=== PATIENT | female | born 1965 | race American Indian/Alaskan Native ===

== ENCOUNTER 2016-09-12 02:48 | Emergency (ER) | payer OTHER ==
[2016-09-12 03:26] VITALS: BP 152/104
[2016-09-12] MEDS ORDERED: PEPCID PO ONE (04:37)
[2016-09-12] MEDS ORDERED: BENADRYL PO ONE (04:37)
[2016-09-12] MEDS ORDERED: DUONEB 0.5 MG-3 MG/3 ML SOLN IH ONE (04:37)
--- NOTE | 2016-09-12 06:45 | Emergency Department Report ---
HPI - General Chief Complaint: Allergic Reaction Time Seen by Provider: 09/12/16 04:36 - HPI HPI: 51-year-old female presents with complaint of 2-1/2 weeks of worsening cough. Patient states she took coricidin ( guaifnessin DM) OTC last night around 6 PM and proceeded to develop tingling in her lips mild swelling of her lips patient states she has had anaphylaxis and multiple allergic reactions with certain types of medicines in the past. States that over the last several hours the swelling has gotten better and has diminished since her initial reaction in hour subsequent to her use of medicine. Patient states she has been coughing and feels mildly short of breath denies any chest pain no palpitations no fever or chills states she has had productive cough over the last 2-3 weeks with greenish yellow sputum. ED Past Medical Hx - Past Medical History Previous Medical History?: Yes Hx Hypertension: Yes Hx Diabetes: Yes Hx Asthma: Yes Hx Dementia: Yes - Surgical History Past Surgical History?: Yes Additional Surgical History: TUBAL LIGATION. HYSTERECTOMY - Social History Smoking Status: Never Smoker Substance Use Type: None - Medications Home Medications: Home Medications Medication Instructions Recorded Confirmed Last Taken Type Albuterol Sulfate [Proventil HFA] 1 - 2 puff IH Q4H PRN #2 hfa.aer.ad 11/19/14 Unknown Rx Benzonatate [Tessalon Perles] 100 mg PO Q8HR PRN #20 capsule 11/19/14 Unknown Rx Ibuprofen [Motrin] 400 mg PO Q8H PRN #20 tablet 11/19/14 Unknown Rx Prednisone [Prednisone 5 mg (6-Day 5 mg PO .TAPER #1 tab.ds.pk 11/19/14 Unknown Rx Pack, 21 Tabs)] Cyclobenzaprine HCl [Flexeril 5 MG 5 mg PO TID #10 tab 05/06/15 Unknown Rx TAB] HYDROcodone/APAP 10-325 [[place] 1 each PO Q6HR PRN #20 tablet 05/06/15 Unknown Rx 10/325] Cyclobenzaprine HCl [Flexeril 5 MG 5 mg PO Q6HR #20 tablet 05/20/15 Unknown Rx TAB] Ibuprofen [Motrin 800 MG tab] 800 mg PO Q8HR PRN #30 tablet 05/20/15 Unknown Rx traMADol [Ultram 50 MG tab] 50 mg PO Q6HR PRN #20 tablet 05/20/15 Unknown Rx ALBUTEROL Inhaler [Proair] 1 puff IH Q4H PRN #1 inha 09/12/16 Unknown Rx Azithromycin [Zithromax Z-TORREY] 250 mg PO DAILY #6 tablet 09/12/16 Unknown Rx Diphenhydramine HCl [Benadryl 25 mg PO BID PRN #20 tablet 09/12/16 Unknown Rx Allergy TAB] EPINEPHrine (NF) [Epipen (Nf)] 0.3 mg IM ONCE PRN #1 syringekit 09/12/16 Unknown Rx Famotidine [Pepcid] 20 mg PO BID PRN #20 tablet 09/12/16 Unknown Rx predniSONE [Deltasone] 40 mg PO QDAY #10 tab 09/12/16 Unknown Rx ED Review of Systems ROS: Stated complaint: ASTHMA/ALLERGIC REACTION Other details as noted in HPI Constitutional: denies: chills, fever Eyes: denies: eye pain, eye discharge, vision change ENT: denies: ear pain, throat pain Respiratory: cough (2 weeks of cough now productive with greenish yellow sputum) . denies: shortness of breath, wheezing Cardiovascular: denies: chest pain, palpitations Endocrine: no symptoms reported Gastrointestinal: denies: abdominal pain, nausea, diarrhea Genitourinary: denies: urgency, dysuria, discharge Musculoskeletal: denies: back pain, joint swelling, arthralgia Skin: denies: rash, lesions Neurological: denies: headache, weakness, paresthesias Psychiatric: denies: anxiety, depression Hematological/Lymphatic: denies: easy bleeding, easy bruising Physical Exam - Physical Exam Vital Signs: Vital Signs 09/12/16 09/12/16 09/12/16 03:22 04:50 05:05 Temperature 98.3 F Pulse Rate 93 H Pulse Rate [ 80 86 Anterior] Respiratory 16 20 Rate [Anterior] Blood Pressure 152/104 O2 Sat by Pulse 97 Oximetry General: General: Small amount of lower lip swelling, no marked angioedema. No audible stridor or dyspnea .Well appearing, well nourished, in no distress. Oriented x 3 , normal mood and affect . Ambulating without difficulty. Head: Normocephalic, atraumatic, no visible or palpable masses, depressions, or scaring. Mouth: No visible tongue swelling. Mucous membranes moist, no mucosal lesions. Pharynx: Oropharynx patent, open Mucosa non-inflamed, no tonsillar hypertrophy or exudate Neck: Supple, without lesions, bruits, or adenopathy, thyroid non-enlarged and non-tender Heart: No cardiomegaly or thrills; regular rate and rhythm, no murmur or gallop Lungs: Mild bilateral wheezing Abdomen: Bowel sounds normal, no tenderness, organomegaly, masses, or hernia Back: Spine normal without deformity or tenderness, no CVA tenderness Musculoskeletal: Normal gait and station. No misalignment, asymmetry, crepitation, defects,tenderness, masses, effusions, decreased range of motion, instability, atrophy or abnormal strength or tone in the head, neck, spine, ribs , pelvis or extremities. Neurologic: CN 2-12 normal. ED Course Vital Signs 09/12/16 09/12/16 09/12/16 03:22 04:50 05:05 Temperature 98.3 F Pulse Rate 93 H Pulse Rate [ 80 86 Anterior] Respiratory 16 20 Rate [Anterior] Blood Pressure 152/104 O2 Sat by Pulse 97 Oximetry ED Medical Decision Making - Medical Decision Making A/P: Bronchitis, angioedema, allergic reaction 1-possible small area of infiltrates right lung, will treat empirically for community-acquired pneumonia. Z-Torrey. Prednisone 40 mg 5 day course, Pepcid, pro-air inhaler 2-I advised patient to return to the ED [facility] if she feels she is becoming progressively or acutely short of breath, any chest pain, any returned lip swelling or facial swelling 3-the patient has minimal lip swelling, as per patient has improved significantly since it initially started 4-I will provide patient with prescription for EpiPen in the event that she develops severe angioedema or anaphylaxis I give her strict precautions to return if she experiences facial swelling or any difficulty breathing. I advised patient to not take any ceyd-ywt-tjpuock medical products that contain guaifenesin or DM as these other components in medicine she took last night which may have induced angioedema. Critical care attestation.: If time is entered above; I have spent that time in minutes in the direct care of this critically ill patient, excluding procedure time. ED Disposition Clinical Impression: Angio-edema Qualifiers: Encounter type: initial encounter Qualified Code(s): T78.3XXA - Angioneurotic edema, initial encounter Disposition: DISCHARGED TO HOME OR SELFCARE Is pt being admited?: No Does the pt Need Aspirin: No Condition: Stable Instructions: Angioedema (ED), Acute Bronchitis (ED) Prescriptions: Diphenhydramine HCl [Benadryl Allergy TAB] 25 mg PO BID PRN #20 tablet PRN Reason: Allergic Reaction predniSONE [Deltasone] 40 mg PO QDAY #10 tab EPINEPHrine (NF) [Epipen (Nf)] 0.3 mg IM ONCE PRN #1 syringekit PRN Reason: Angioedema Famotidine [Pepcid] 20 mg PO BID PRN #20 tablet PRN Reason: Allergic Reaction ALBUTEROL Inhaler [Proair] 1 puff IH Q4H PRN #1 inha PRN Reason: Wheezing Azithromycin [Zithromax Z-TORREY] 250 mg PO DAILY #6 tablet Referrals: PRIMARY CARE, [Primary Care Provider] - 3-5 Days ONEIL BENTON MD [Staff Physician] - 3-5 Days Forms: Work/School Release Form(ED) Time of Disposition: 06:50
--- NOTE | 2016-09-12 07:44 | XRay Report ---
ROUTINE CHEST, TWO VIEWS: PA and lateral views demonstrate the heart and mediastinal contour to be of normal size and shape. The lungs are clear and fully expanded and the soft tissues and bony structures are normal. IMPRESSION: Normal study.
== END 2016-09-12 07:00 | disposition home or self-care (01) ==
LOC: ED 02:48
DX: T78.3XXA Angioneurotic edema, initial encounter (principal); Y92.9 Unspecified place or not applicable; I10 Essential (primary) hypertension; E11.9 Type 2 diabetes mellitus without complications; J45.909 Unspecified asthma, uncomplicated; F03.90 Unspecified dementia, unspecified severity, without behavioral disturbance, psychotic disturbance, mood disturbance, and anxiety; Z98.51 Tubal ligation status; Z90.710 Acquired absence of both cervix and uterus
CPT/HCPCS: 71020; 94640; 96372; 99283; J2930

== ENCOUNTER 2017-08-29 15:12 | Emergency (ER) | payer OTHER ==
[2017-08-29] MEDS ORDERED: TYLENOL PO ONE (15:39)
[2017-08-29] MEDS ORDERED: TYLENOL ONE (15:42)
[2017-08-29] MEDS ORDERED: DUONEB *Not for PRN Use IH ONE (16:03)
[2017-08-29 16:29] LABS: Basophils % (Auto) 0.9 % (0.0-1.8); Eosinophils % (Auto) 0.6 % (0.0-4.3); Hematocrit 37.9 % (30.3-42.9); Hemoglobin 12.8 gm/dl (10.1-14.3); Mean Corpuscular HGB Conc 34 % (30-34); Mean Corpuscular Hemoglobin 31 pg (28-32); Mean Corpuscular Volume 91 fl (79-97); Platelet Count 190 K/mm3 (140-440); Red Blood Count 4.15 M/mm3 (3.65-5.03); Red Cell Distribution Width 13.7 % (13.2-15.2); White Blood Count 4.8 K/mm3 (4.5-11.0)
--- NOTE | 2017-08-29 16:45 | Emergency Department Report ---
ED Asthma HPI - General Chief Complaint: Dyspnea/Respdistress Stated Complaint: ASTHMA ATTACK Time Seen by Provider: 08/29/17 15:55 Source: patient, old records reviewed Mode of arrival: Ambulatory Limitations: No Limitations - History of Present Illness MD Complaint: "asthma attack" -: Gradual Asthma History: childhood onset Severity: mild Associated Symptoms: dry cough, fever Treatments Prior to Arrival: inhaled bronchodilator - Related Data Previous Rx's Medication Instructions Recorded Last Taken Type Benzonatate [Tessalon Perles] 100 mg PO Q8HR PRN #20 capsule 08/29/17 Unknown Rx Cephalexin [Keflex] 500 mg PO Q12HR #20 cap 08/29/17 Unknown Rx predniSONE [Deltasone] 20 mg PO DAILY #5 tablet 08/29/17 Unknown Rx Allergies Allergy/AdvReac Type Severity Reaction Status Date / Time aspirin [From [facility]] Allergy Anaphylaxis Verified 05/06/15 08:17 citric acid Allergy Anaphylaxis Verified 05/06/15 08:17 [From [facility]] guaifenesin [From Mucinex] Allergy Shortness Verified 08/29/17 15:39 of Breath sodium bicarbonate Allergy Anaphylaxis Verified 05/06/15 08:17 [From [facility]] sodium fluoride Allergy Anaphylaxis Verified 05/06/15 08:17 [From Thera-Flur] acetaminophen [From Tylenol] AdvReac Unknown Verified 05/06/15 08:17 OTC Cold Meds Allergy Anaphylaxis Uncoded 09/10/16 06:39 ED Review of Systems ROS: Stated complaint: ASTHMA ATTACK Other details as noted in HPI Comment: All other systems reviewed and negative Constitutional: fever Respiratory: cough, shortness of breath Cardiovascular: denies: chest pain, palpitations, dyspnea on exertion ED Past Medical Hx - Past Medical History Previous Medical History?: Yes Hx Hypertension: Yes Hx Diabetes: Yes Hx Asthma: Yes Hx Dementia: Yes - Surgical History Past Surgical History?: Yes Additional Surgical History: TUBAL LIGATION. HYSTERECTOMY - Social History Smoking Status: Never Smoker Substance Use Type: None - Medications Home Medications: Home Medications Medication Instructions Recorded Confirmed Last Taken Type Benzonatate [Tessalon Perles] 100 mg PO Q8HR PRN #20 capsule 08/29/17 Unknown Rx Cephalexin [Keflex] 500 mg PO Q12HR #20 cap 12/22/17 Unknown Rx predniSONE [Deltasone] 20 mg PO DAILY #5 tablet 08/29/17 Unknown Rx ED Physical Exam - General Limitations: No Limitations General appearance: alert - Eye Eye exam: Present: PERRL, EOMI - ENT ENT exam: Present: mucous membranes moist, TM's normal bilaterally - Neck Neck exam: Present: normal inspection - Respiratory Respiratory exam: Present: normal lung sounds bilaterally, wheezes (B YOOER) - Cardiovascular Cardiovascular Exam: Present: regular rate, tachycardia (ALBUTEROL) - GI/Abdominal GI/Abdominal exam: Present: soft - Rectal Rectal exam: Present: deferred - Extremities Exam Extremities exam: Present: normal inspection - Back Exam Back exam: Present: normal inspection - Neurological Exam Neurological exam: Present: alert, oriented X3, CN II-XII intact, normal gait - Psychiatric Psychiatric exam: Present: normal affect, normal mood - Skin Skin exam: Present: warm, dry, intact ED Course Vital Signs 08/29/17 08/29/17 08/29/17 15:30 17:07 18:06 Temperature 101.4 F H 101.4 F H 100 F H Pulse Rate 119 H 125 H Respiratory 26 H 24 Rate Blood Pressure 130/86 Blood Pressure 109/65 [Left] O2 Sat by Pulse 100 99 Oximetry - Reevaluation(s) Reevaluation #1: 08/29/17 TO ER W COUGH AND ASTHMA FLARE WHEEZING ON ADMIT FEVER NOTED NO PURULENT SPUTUM ABD BENIGN NO DYSURIA LABS NOTED TYLENOL IN TRIAGE TAKING PO NONTOXIC APPEARING Reevaluation #2: 08/29/17 17:52 MEDICATED FOR FEVER CAN TAKE MOTRIN FLUIDS IV ROCEPHIN IV FOR EMPIRIC COVERAGE REPORTS FEELING MUCH BETTER Reevaluation #3: 08/29/17 17:59 TEMP 100 PO HR 100 RR 20 NO WHEEZING NO SOB MEDICATED PER ORDERS DC HOME W DC POC ED Medical Decision Making - Lab Data Result diagrams: 08/29/17 16:13 08/29/17 16:13 - Radiology Data Radiology results: report reviewed, image reviewed - Medical Decision Making SEE NOTE - Differential Diagnosis ASTHMA AE W WO INFECTION Critical care attestation.: If time is entered above; I have spent that time in minutes in the direct care of this critically ill patient, excluding procedure time. ED Disposition Clinical Impression: Asthma, URTI (acute upper respiratory infection), Fever, Diabetes, Hyperglycemia Disposition: DC-01 TO HOME OR SELFCARE Is pt being admited?: No Does the pt Need Aspirin: No Condition: Stable Instructions: Asthma (ED), Diabetes Mellitus Type 2 in Adults (ED) Additional Instructions: FOLLOW YOUR DIABETIC DIET MEDS ORDERED FOLLOW UP PCP THIS WEEK BLOOD SUGAR MAY GO UP WITH STEROIDS MOTRIN OR TYLENOL FOR PAIN OR FEVER Prescriptions: Benzonatate [Tessalon Perles] 100 mg PO Q8HR PRN #20 capsule PRN Reason: Cough Cephalexin [Keflex] 500 mg PO Q12HR #20 cap predniSONE [Deltasone] 20 mg PO DAILY #5 tablet Referrals: PRIMARY CAREMD [Primary Care Provider] - 3-5 Days HEIDI CORRAL MD [Staff Physician] - 3-5 Days Time of Disposition: 17:09
[2017-08-29 16:53] LABS: Alanine Aminotransferase 34 units/L (7-56); Albumin 3.5 g/dL (3.9-5); Albumin/Globulin Ratio 1.2 %; Alkaline Phosphatase 69 units/L (35-129); Total Protein 6.5 g/dL (6.3-8.2)
[2017-08-29 17:05] LABS: Bilirubin,Direct < 0.2 mg/dL (0-0.2)
[2017-08-29 17:07] VITALS: BP 109/65
[2017-08-29] MEDS ORDERED: ROCEPHIN IM ONE (17:12)
[2017-08-29] MEDS ORDERED: XYLOCAINE 1% MPF 5 mL INFILTRATI ONE (17:12)
[2017-08-29] MEDS ORDERED: MOTRIN PO ONE (17:13)
[2017-08-29] MEDS ORDERED: NACL 0.9% 1000 ML 1,000 ML IV ONE (17:16)
[2017-08-29] MEDS ORDERED: ROCEPHIN/NS 1 GM/50 ML 1 GM/50 ML BAG IV ONE (17:25)
[2017-08-29 17:29] LABS: Anion Gap 16 mmol/L; BUN/Creatinine Ratio 10; Blood Urea Nitrogen 9 mg/dL (7-17); Carbon Dioxide 30 mmol/L (22-30); Chloride 96.9 mmol/L (98-107); Glucose 352 mg/dL (65-100); Potassium 4.5 mmol/L (3.6-5.0); Sodium 138 mmol/L (137-145)
[2017-08-29] MEDS ORDERED: cefTRIAXone 1 GM in NACL 0.9% 20 ML IV ONE (18:00)
--- NOTE | 2017-08-29 18:27 | XRay Report ---
FINAL REPORT PROCEDURE: XR CHEST ROUTINE 2V TECHNIQUE: PA and lateral chest radiographs were obtained. CPT 23150 HISTORY: Shortness of breath. COMPARISON: No prior studies are available for comparison. FINDINGS: Heart: Normal. Mediastinum/Vessels: Normal. Lungs/Pleural space: Normal. Bony thorax: Small multilevel osteophytes. Slight wedge compression in the mid thoracic spine. Other: IMPRESSION: No radiographic evidence of acute cardiopulmonary disease.
== END 2017-08-29 18:15 | disposition home or self-care (01) ==
LOC: ED 15:12
DX: J45.909 Unspecified asthma, uncomplicated (principal); E11.65 Type 2 diabetes mellitus with hyperglycemia; J06.9 Acute upper respiratory infection, unspecified; R50.9 Fever, unspecified; I10 Essential (primary) hypertension; Z79.82 Long term (current) use of aspirin; Z88.8 Allergy status to other drugs, medicaments and biological substances
CPT/HCPCS: 36415; 71020; 80048; 80074; 84484; 85025; 87400; 93005; 93010; 94640; 96372; 96374; 99284; J0696; J2930; J7030

== ENCOUNTER 2019-11-11 09:57 | Outpatient (CLI) | payer OTHER ==
--- NOTE | 2019-11-11 11:57 | Mammography Report ---
DIGITAL SCREENING MAMMOGRAM WITH CAD, 11/11/2019 INDICATION: Routine screening mammography. TECHNIQUE: Digital bilateral 2D mammography was obtained in the craniocaudal and mediolateral obliq ue projections. This examination was interpreted with the benefit of Computer-Aided Detection analysi s. COMPARISON: 09/14/2018 FINDINGS: Breast Density: There are scattered areas of fibroglandular density. There is no evidence of dominant mass, suspicious calcifications or architectural distortion in eithe r breast. IMPRESSION: No mammographic evidence of malignancy. Follow up recommendation: Routine yearly BI-RADS Category 1: Negative. A "normal" or negative report should not discourage follow up or biopsy of a clinically significant f inding. A written summary of these findings will be mailed to the patient. The patient will be entered into a mammography reporting system which will generate a reminder letter for the patient's next appointmen t at the appropriate interval. The [employer] recommends yearly mammograms starting at age 40 and continuing as l bala as a woman is in good health. Breast MRI is recommended for women with an approximate 20-25% or greater lifetime risk of breast cancer, including women with a strong family history of breast or ova shilo cancer or who have been treated for Hodgkin's disease. Signer Name: Mo Garcia MD Signed: 11/11/2019 11:53 AM Workstation Name: [id number]
== END 2019-11-11 09:58 | disposition home or self-care (01) ==
LOC: MAMMO 09:57
PROVIDERS: ATTEND Internal Medicine
DX: Z12.31 Encounter for screening mammogram for malignant neoplasm of breast (principal); N64.89 Other specified disorders of breast
CPT/HCPCS: 77067

== ENCOUNTER 2020-12-17 16:35 | Emergency (ER) | payer OTHER ==
[2020-12-17 17:08] VITALS: BP 220/122
[2020-12-17] MEDS ORDERED: ACETAMINOPHEN 500 MG TAB PO ONE (17:16)
--- NOTE | 2020-12-17 17:16 | Event Note ---
ED Screening Note Date of service: 12/17/20 Time: 17:15 ED Screening Note: Pleasant 55-year-old female presents the emergency department chief complaint of scratchy throat, cough and congestion since riding on the bus a few days ago. She states she has been self quarantining at home. Reports a subjective fever. Denies any chest pain, shortness of breath, nausea vomiting, diarrhea, weakness or any other associated symptoms. This initial assessment/diagnostic orders/clinical plan/treatment(s) is/are subject to change based on patients health status, clinical progression and re- assessment by fellow clinical providers in the ED. Further treatment and workup at subsequent clinical providers discretion. Patient/guardian urged not to elope from the ED as their condition may be serious if not clinically assessed and managed. Initial orders include: CBC, CMP, chest x-ray
--- NOTE | 2020-12-17 17:52 | XRay Report ---
CHEST 2 VIEWS INDICATION / CLINICAL INFORMATION: cough, congestion. COMPARISON: 2 views of the chest dated 08/29/2017. FINDINGS: SUPPORT DEVICES: None. HEART / MEDIASTINUM: No significant abnormality. LUNGS / PLEURA: Clear lungs. No significant pleural effusion. No pneumothorax. ADDITIONAL FINDINGS: No significant additional findings. IMPRESSION: 1. No acute abnormality of the chest. Signer Name: Denis Sanchez MD Signed: 12/17/2020 5:48 PM Workstation Name: [id number]
[2020-12-17 18:20] LABS: Basophils % (Auto) 0.8 % (0.0-1.8); Eosinophils # (Auto) 0.1 K/mm3 (0.0-0.4); Eosinophils % (Auto) 2.5 % (0.0-4.3); Hematocrit 35.7 % (30.3-42.9); Hemoglobin 12.3 gm/dl (10.1-14.3); Lymphocytes # (Auto) 0.8 K/mm3 (1.2-5.4); Lymphocytes % (Auto) 16.1 % (13.4-35.0); Mean Corpuscular HGB Conc 35 % (30-34); Mean Corpuscular Volume 91 fl (79-97); Monocytes # (Auto) 0.7 K/mm3 (0.0-0.8); Monocytes % (Auto) 15.2 % (0.0-7.3); Platelet Count 218 K/mm3 (140-440); Red Blood Count 3.93 M/mm3 (3.65-5.03); Red Cell Distribution Width 14.9 % (13.2-15.2)
[2020-12-17 18:31] LABS: Alanine Aminotransferase 26 units/L (7-56); BUN/Creatinine Ratio 13; Blood Urea Nitrogen 13 mg/dL (7-17); Calcium 8.9 mg/dL (8.4-10.2); Hemolysis Index 15
--- NOTE | 2020-12-17 19:23 | Emergency Department Report ---
ED General Adult HPI - General Chief complaint: Upper Respiratory Infection Stated complaint: BODYACHES/DEMI Time Seen by Provider: 12/17/20 19:08 Source: patient Mode of arrival: Ambulatory Limitations: No Limitations - History of Present Illness Initial comments: 55-year-old female presents the emergency department with complaints of scratchy throat, cough and congestion since riding on the bus a few days ago. She states she has been self quarantining at home. Reports a subjective fever. Patient has a history of asthma; states she just ran out of her albuterol inhaler. Patient reports her cough seems worse when she is lying down. She states this is happened before when she was diagnosed with pneumonia. Denies any chest pain, shortness of breath, nausea vomiting, diarrhea, weakness or any other associated symptoms. Severity scale (0 -10): 8 - Related Data Previous Rx's Medication Instructions Recorded Last Taken Type Benzonatate [Tessalon Perles] 100 mg PO Q8HR PRN #20 capsule 08/29/17 Unknown Rx cephALEXin [Keflex] 500 mg PO Q12HR #20 cap 08/29/17 Unknown Rx predniSONE [Deltasone] 20 mg PO DAILY #5 tablet 08/29/17 Unknown Rx Azithromycin [Zithromax Z-TORREY] 250 mg PO DAILY #6 tablet 09/11/18 Unknown Rx Benzonatate [Tessalon Perles] 100 mg PO Q8HR #10 capsule 09/11/18 Unknown Rx Fluticasone (Nf) [Flovent Hfa(Nf)] 2 puff IH BID #1 inhalation 09/11/18 Unknown Rx Albuterol Sulfate [Proair 90 mcg IH Q6H #1 aer.pow.ba 12/17/20 Unknown Rx Respiclick] predniSONE [Deltasone] 20 mg PO QDAY #5 tab 12/17/20 Unknown Rx Allergies Allergy/AdvReac Type Severity Reaction Status Date / Time citric acid Allergy Anaphylaxis Verified 05/06/15 08:17 [From [place]] guaifenesin [From Mucinex] Allergy Shortness Verified 08/29/17 15:39 of Breath sodium bicarbonate Allergy Anaphylaxis Verified 05/06/15 08:17 [From [place]] sodium fluoride Allergy Anaphylaxis Verified 05/06/15 08:17 [From Thera-Flur] OTC Cold Meds Allergy Anaphylaxis Uncoded 09/10/16 06:39 ED Review of Systems ROS: Stated complaint: BODYACHES/DEMI Other details as noted in HPI Other: GENERAL: Positive for subjective fever. ENT: Positive for sore throat and congestion. CARDIOVASCULAR: Negative for chest pain, palpitations, lower extremity swelling. PULMONARY: Positive for cough. GASTROINTESTINAL: Negative for abdominal pain, nausea, vomiting, diarrhea, constipation. MUSCULOSKELETAL: Negative for joint pain, joint swelling, myalgias, back pain, neck pain. NEUROLOGICAL: Negative for headache, seizure, syncope, paresthesias, weakness. INTEGUMENTARY: Negative for erythema, rash, diaphoresis, laceration, ecchymosis. HEMATOLOGICAL: Negative for hemoptysis, hematemesis, hematochezia, hematuria. PSYCHIATRIC: Negative for hallucinations, suicidal ideation, homicidal ideation, anxiety, depression. ED Past Medical Hx - Past Medical History Previous Medical History?: Yes Hx Hypertension: Yes Hx Diabetes: Yes Hx Asthma: Yes Hx Dementia: Yes - Surgical History Past Surgical History?: Yes Additional Surgical History: TUBAL LIGATION. HYSTERECTOMY - Social History Smoking Status: Never Smoker Substance Use Type: None - Medications Home Medications: Home Medications Medication Instructions Recorded Confirmed Last Taken Type Benzonatate [Tessalon Perles] 100 mg PO Q8HR PRN #20 capsule 08/29/17 Unknown Rx cephALEXin [Keflex] 500 mg PO Q12HR #20 cap 08/29/17 Unknown Rx predniSONE [Deltasone] 20 mg PO DAILY #5 tablet 08/29/17 Unknown Rx Azithromycin [Zithromax Z-TORREY] 250 mg PO DAILY #6 tablet 09/11/18 Unknown Rx Benzonatate [Tessalon Perles] 100 mg PO Q8HR #10 capsule 09/11/18 Unknown Rx Fluticasone (Nf) [Flovent Hfa(Nf)] 2 puff IH BID #1 inhalation 09/11/18 Unknown Rx Albuterol Sulfate [Proair 90 mcg IH Q6H #1 aer.pow.ba 12/17/20 Unknown Rx Respiclick] predniSONE [Deltasone] 20 mg PO QDAY #5 tab 12/17/20 Unknown Rx ED Physical Exam - General Limitations: No Limitations - Other Other exam information: General: Awake and alert. No acute distress. Head: Atraumatic, normocephalic. Eyes: EOMI. Pupils are equal and round. Normal sclera and conjunctiva. ENT: Oral mucosa is moist. Normal pharyngeal exam. Neck: Supple. No lymphadenopathy. Pulmonary: No respiratory distress. Clear to auscultation bilaterally. Cardiac: Tachycardic. Pulses are palpable and equal bilaterally. No lower extremity cyanosis or edema. Skin: Warm and dry. No rashes. Abdomen: Soft, non-tender, non-protuberant. No guarding, rigidity, or rebound. Bowel sounds are normal. No organomegaly or masses noted. Back: Normal alignment. No CVA tenderness. Extremities: Symmetrical. Full range of motion intact. Neurological: Alert and oriented, appropriately interactive, no focal deficits. Psych: Cooperative. Appropriate mood and affect. Speech is evenly metered. Thoughts are logically construed. ED Course Vital Signs 12/17/20 17:06 Temperature 99.7 F H Pulse Rate 116 H Respiratory 20 Rate Blood Pressure 207/121 [Left] Blood Pressure 220/122 [Right] O2 Sat by Pulse 96 Oximetry ED Medical Decision Making - Lab Data Result diagrams: 12/17/20 17:37 12/17/20 17:37 - Medical Decision Making Differential diagnosis including but not limited to: asthma exacerbation, COPD, pleural effusion, pneumothorax, pneumonia, influenza, acute nasopharyngitis On evaluation, patient remains stable. Repeat heart rate improved from 116-104 without intervention. No respiratory distress, no hypoxia. Labs are unremarkable. Chest x-ray is negative. History and exam findings most suggestive of viral upper respiratory infection. Symptoms likely exacerbated by patient's underlying asthma. Patient will be provided with refill of albuterol inhaler as well as a short course of steroids. Patient has been advised that her blood pressure and blood glucose levels may be elevated while she is taking the steroid. Patient expressed understanding is agreeable to plan of care. Disease transmission precautions discussed. Strict return precautions provided. Repeat exam is unremarkable and benign. History, exam, diagnostic testing, and current condition do not suggest worrisome pathology to warrant further testing, continued ED treatment, admission, or surgical evaluation at this point. Given the low probability of a significant medical illness, it would be more likely to result in harm than benefit to perform further testing at this stage. Discussed findings, presumptive diagnosis, need for follow-up and specific signs/symptoms that should prompt immediate return to the emergency department. Instructions were explained in detail to the patient in addition to giving written discharge information. Patient expressed understanding and was given the opportunity to ask questions, all of which were satisfactorily answered prior to discharge home. Critical care attestation.: If time is entered above; I have spent that time in minutes in the direct care of this critically ill patient, excluding procedure time. ED Disposition Clinical Impression: Viral upper respiratory tract infection with cough Disposition: TO HOME OR SELFCARE Is pt being admited?: No Does the pt Need Aspirin: No Condition: Stable Instructions: Viral Respiratory Infection, [id number] Additional Instructions: Use albuterol as directed. Take prednisone with food as directed. Please note that your blood sugar and your blood pressure may run high while you are taking steroids. Rest. Drink plenty fluids. Wash hands frequently to prevent disease transmission. Do not share food or drinks with others. [facility] Call tomorrow to schedule an appointment. Return to the emergency department immediately for new or worsening symptoms Prescriptions: predniSONE [Deltasone] 20 mg PO QDAY #5 tab Albuterol Sulfate [Proair Respiclick] 90 mcg IH Q6H #1 aer.pow.ba Referrals: NAT KEARNEY MD [Staff Physician] - 3-5 Days Time of Disposition: 19:25
== END 2020-12-17 20:00 | disposition home or self-care (01) ==
LOC: ED 16:35
DX: J06.9 Acute upper respiratory infection, unspecified (principal); B97.89 Other viral agents as the cause of diseases classified elsewhere; R05 Cough; I10 Essential (primary) hypertension; E11.9 Type 2 diabetes mellitus without complications; J45.909 Unspecified asthma, uncomplicated; F03.90 Unspecified dementia, unspecified severity, without behavioral disturbance, psychotic disturbance, mood disturbance, and anxiety; Z90.710 Acquired absence of both cervix and uterus; Z98.51 Tubal ligation status; Z79.2 Long term (current) use of antibiotics; Z79.899 Other long term (current) drug therapy; Z88.8 Allergy status to other drugs, medicaments and biological substances
CPT/HCPCS: 36415; 71046; 80053; 85025